=== PATIENT | female | born 1970 | race Caucasian/White ===

== ENCOUNTER 2019-10-19 04:52 | Inpatient (IN) ==
[2019-10-13 12:26] LABS: Appearance,Urine CLEAR; Bacteria,Urine 0 /hpf (0); Bilirubin,Urine NEG (NEG); Color,Urine YELLOW; Culture Indicated,Urine NO; Glucose,Urine (UA) NEGATIVE (NEG); Ketones,Urine NEG (NEG); Leukocyte Esterase,Urine NEG /uL (NEG); Mucus,Urine MANY /hpf (0); Nitrate,Urine NEG (NEG); Protein,Urine 30 mg/dL (NEG); Specific Gravity,Urine 1.026 (1.000-1.035); Urine Blood NEG mg/dL (<0.03); Urine RBC < 1 /hpf (0-1); Urine Squamous Epithelial Cell 1 /hpf (0-4); Urine Transitional Epi Cells < 1 /hpf (0-2); Urine WBC < 1 /hpf (0-4); Urobilinogen,Urine NEG (NEG)
[2019-10-13 12:42] LABS: Basophils # (Auto) 0.03 K/mcL (0.00-0.30); Basophils % (Auto) 0.4 % (0.0-2.0); Eosinophils # (Auto) 0.15 K/mcL (0.00-0.70); Eosinophils % (Auto) 2.1 % (0.0-7.0); Granulocytes % (Auto) 79.7 % (38.0-78.0); Hematocrit 35.4 % (34.1-44.9); Hemoglobin 11.6 g/dL (11.2-15.7); Lymphocytes # (Auto) 0.86 K/mcL (1.50-4.80); Lymphocytes % (Auto) 11.9 % (15.5-49.0); Mean Cell Volume 88.9 fL (80.0-100.0); Mean Corpuscular HGB Conc 32.8 g/dL (31.0-36.0); Mean Platelet Volume 9.5 fL (7.4-10.4); Monocytes # (Auto) 0.43 K/mcL (0.10-0.90); Monocytes % (Auto) 5.9 % (1.0-12.0); Platelet Count 258 K/mcL (140-440); RBC 3.98 M/mcL (3.59-5.38); Red Cell Distribution Width 13.3 % (11.5-14.5); WBC 7.2 K/mcL (4.50-11.00)
[2019-10-13 13:12] LABS: ALT/SGPT 17 U/l (0-40); AST/SGOT 16 U/l (0-37); Albumin 4.1 gm/dL (3.2-5.2); Albumin/Globulin Ratio 1.4 (1.0-2.3); Alkaline Phosphatase 143 U/L (39-117); Bilirubin,Total 0.5 mg/dL (0.0-1.0); Blood Urea Nitrogen 14 mg/dl (6-20); Calcium 9.1 mg/dl (8.6-10.4); Carbon Dioxide 28 mmol/L (22-30); Chloride 100 mmol/L (96-108); Glomerular Filtration Rate 86; Glucose 92 mg/dL (70-105)
[2019-10-13 13:28] LABS: Estimated Average Glucose(eAG) 123 mg/dL; Hemoglobin A1C 5.9 % HGB (4.0-6.0)
[2019-10-13 13:34] LABS: Prothrombin Time 13.2 sec (11.9-14.5)
[2019-10-19] MEDS ORDERED: IPRATROPIUM/ALBUTEROL 3 ML AMPUL.NEB NEB PRN ×2 (05:00→08:57)
[2019-10-19] MEDS ORDERED: SCOPOLAMINE 1 PATCH PATCH TOPICAL PRN (05:00)
[2019-10-19] MEDS ORDERED: oxyCODONE 10 MG TAB.ER.12H PO SCH (06:00)
[2019-10-19] MEDS ORDERED: ceFAZolin 2 GM in DEXTROSE 5% IN WATER 50 ML IV SCH (06:00)
[2019-10-19] MEDS ORDERED: PREGABALIN 75 MG CAPSULE PO SCH (06:00)
[2019-10-19] MEDS ORDERED: CELECOXIB 200 MG CAPSULE PO SCH (06:00)
[2019-10-19] MEDS ORDERED: DEXAMETHASONE 10 MG/ML VIAL IV ONE (07:38)
[2019-10-19] MEDS ORDERED: PHENYLEPHRINE 10 MG/ML VIAL IV ONE (07:38)
[2019-10-19] MEDS ORDERED: PROPOFOL 200 MG/20 ML VIAL IV ONE (07:38)
[2019-10-19] MEDS ORDERED: TRANEXAMIC ACID 1,000 MG/10 ML VIAL IV ONE ×2 (07:38→09:08)
[2019-10-19] MEDS ORDERED: MIDAZOLAM 2 MG/2 ML VIAL IV ONE (07:38)
[2019-10-19] MEDS ORDERED: ONDANSETRON 4 MG/2 ML VIAL IV ONE (07:38)
[2019-10-19] MEDS ORDERED: KETAMINE 100 MG/ML ML IV ONE (07:38)
[2019-10-19] MEDS ORDERED: LIDOCAINE HCL/PF 100 MG/5 ML SYRINGE IV ONE (07:38)
[2019-10-19] MEDS ORDERED: GLYCOPYRROLATE 0.2 MG/ML VIAL IV ONE (07:38)
[2019-10-19] MEDS ORDERED: TRIAMCINOLONE ACETONIDE 40 MG/ML VIAL IM ONE (08:19)
[2019-10-19] MEDS ORDERED: BUPIVACAINE 0.25% 50 ML VIAL IJ ONE (08:19)
[2019-10-19] MEDS ORDERED: ACETAMINOPHEN 1,000 MG/100 ML BOTTLE IV ONE (08:57)
[2019-10-19] MEDS ORDERED: MEPERIDINE 25 MG/ML SYRINGE IV PRN (08:57)
[2019-10-19] MEDS ORDERED: METHOCARBAMOL 1,000 MG/10 ML VIAL IV PRN (08:57)
[2019-10-19] MEDS ORDERED: LORazepam 2 MG/ML VIAL IV PRN (08:57)
[2019-10-19] MEDS ORDERED: LACTATED RINGERS 1,000 ML IV SCH (09:00)
[2019-10-19] MEDS ORDERED: BENZOCAINE/MENTHOL 1 LOZENGE PO PRN (09:08)
[2019-10-19] MEDS ORDERED: BISACODYL 10 MG SUPP.RECT PR PRN (09:08)
[2019-10-19] MEDS ORDERED: MAGNESIUM HYDROXIDE 30 ML ORAL.SUSP PO PRN (09:08)
[2019-10-19] MEDS ORDERED: POLYETHYLENE GLYCOL 3350 17 GM PACKET PO PRN (09:08)
[2019-10-19] MEDS ORDERED: FLEETS ADULT ENEMA PR PRN (09:08)
[2019-10-19] MEDS ORDERED: HYDROmorphone 2 MG/ML VIAL IV PRN (09:08)
[2019-10-19] MEDS ORDERED: KETOROLAC 30 MG/ML VIAL IV PRN (09:08)
[2019-10-19] MEDS ORDERED: ONDANSETRON 4 MG/2 ML VIAL IV PRN (09:08)
--- NOTE | 2019-10-19 09:08 | Brief Operative Note ---
Date of procedure: 10/19/19 Pre-op diagnosis: Bilateral hip acetabular dysplasia with DJD Post-op diagnosis: same Procedure: 1)Right anterior total hip arthroplasty 2)Left hip intra-articular joint corticosteroid injection Grafts/Implants: Yes (Depuy Actis 1 std, +1 32 delta head, 48 cup, neutral altrx liner) Anesthesia: spinal, GLMA Findings: dysplasia with DJD Complications: none Surgeon: Ronaldo Can Shade Cutter: Tacos Medrano Estimated blood loss (cc): 150 Specimens Removed/Pathology: none sent Condition: stable Disposition: PACU
[2019-10-19] MEDS ORDERED: BACLOFEN 10 MG TABLET PO PRN (09:13)
[2019-10-19] MEDS: fentaNYL 100 MCG/2 ML VIAL IV PRN ×4 (09:43→10:06)
--- NOTE | 2019-10-19 10:04 | Operative Note ---
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 PROCEDURE PERFORMED: 1. Right anterior total hip arthroplasty placing a DePuy Actis size 1 standard offset femoral stem, a +1, 32 mm delta ceramic head ball with a 48 Charlo cup and a neutral AltrX liner. 2. Left hip intraarticular corticosteroid joint injection under fluoroscopic guidance. SURGEON: Ronaldo Can MD CANDY STARCH MOLD PRINTER: Aki Medrano PA-C. This provider's expertise and technical skill were required throughout the case. The PA assisted with preoperative coordination, intraoperative retraction, wound closure, dressing and splint application, as well as postoperative documentation and care coordination. ANESTHESIA: Spinal plus general. DRAINS: None. SPECIMENS: Femoral head which was discarded. BLOOD LOSS: 150 mL COMPLICATIONS: None. POSTOPERATIVE CONDITION: Stable. INDICATIONS FOR SURGERY: This is a 49-year-old female who has had bilateral severe hip pain. Radiographs showed bilateral acetabular dysplasia. MRI showed degenerative joint disease in addition to the dysplasia. FINDINGS AT SURGERY: She did have significant synovitis within the hip joint. Post implantation showed satisfactory component position with equal leg lengths and minimally increased offset. PROCEDURE IN DETAIL: The patient had been seen preoperatively. Informed consent obtained after discussion of risks and benefits of surgery. Risks including, but not limited to, bleeding; infection; injury to nerves, blood vessels, and other surrounding structures; anesthetic risks; incomplete or no resolution of symptoms; leg length discrepancy; dislocation; fracture; DVT and pulmonary embolus risks; and the possibility of needing further revision joint surgery. The patient understood these risks and wished to proceed. Correct operative site was marked and then spinal anesthesia given. The patient was then taken to the operating room and LMA general given. The patient was carefully transferred to the fracture table and then the operative hip was carefully prepped and draped in normal sterile fashion. Timeout was performed verifying patient name, operative site, and plan. Ioban was used to cover all skin surfaces. A standard anterior approach incision was made with a scalpel through skin and subcutaneous tissue. Hemostasis was obtained with Bovie cautery. Careful blunt dissection was taken down on the tensor fascia and then this was undermined circumferentially. IrriSept was irrigated and a ring retractor placed. Tensor fascia was incised in line with muscle fibers and then careful blunt dissection taken medial to the muscle belly. Blunt cobra retractors were placed on the superior and inferior femoral neck and then circumflex vessels were coagulated and cut and vastus fascia split distally. Anterior capsulectomy was performed and then the capsule releases. Corkscrew was placed in the femoral head. Prior to placement of the corkscrew we did take x-rays for joint point. Once a corkscrew was placed we used fluoroscopy to identify our approximate neck cut trajectory and then our femoral neck was cut with oscillating tip saw. Femoral head was removed and the acetabulum exposed. Labrum was excised circumferentially as well as soft tissue from the floor. We then irrigated with IrriSept. We then began sequentially reaming until 1 mm smaller than the final implant. We then opened the acetabular component. IrriSept was irrigated, after a minute pulse lavaged with saline and then the cup was impacted using the [id number]. Due to her dysplasia, we did go ahead and place a screw in the posterior superior quadrant. This was a 25 mm screw that did get excellent cortical purchase. Joint point was used to verify satisfactory cup position. A center hole cover was placed and then the acetabular liner was carefully aligned and impacted and carefully verified to be fully seated. We then released traction. The leg was externally rotated and released capsule around the medial neck. The leg was then extended and adducted. Capsule was released out towards greater trochanter and then the proximal femur was exposed. Box osteotome was used to gain canal entry and an awl was used to identify canal trajectory. Rongeur and rasp were used to lateralize and then we began sequentially broaching up to the final size. We calcar planed down onto the broach and then the neck trial and head ball were placed. The hip was reduced. Fluoro was brought in and x-rays taken, joint point was used to verify satisfactory position. We then re-dislocated and removed the trial implants. Definitive implants were opened. We then irrigated the femoral canal with IrriSept again, after a minute pulse lavaged with saline. The final stem was impacted and seated. We then opened the head ball. The stem was carefully cleaned and dried and the head ball was impacted. We then reduced the hip with satisfactory tension. Final fluoro images were taken and saved. We irrigated the joint with IrriSept, after a minute pulse lavaged with saline again and then closed the tensor fascia with two running #1 Vicryls, one running proximal, one running distal and a ring retractor was removed. Final IrriSept irrigation was done, after a minute final pulse lavage, and then fat was tacked to fascia with Vicryl and then 2-0 Monocryl for subcutaneous and felipe for skin. Xeroform and sterile dressing were applied. Once the drapes were removed, we went to the left side and sterile Betadine prep was used over the anterior hip. Fluoroscopic guidance was used to place a spinal needle into the hip joint and then 4 mL of Marcaine mixed with 2 mL of Kenalog 40 mg per mL were injected. A Band-Aid was placed. The patient was then awakened, extubated, and transferred to recovery in stable condition. [id number]:kalie Job ID: [id number] Doc ID: [id number] Ronaldo Can MD
--- NOTE | 2019-10-19 10:19 | XRay Report ---
CLINICAL INFORMATION: right total hip COMPARISON: None. FINDINGS: Multiple digital images from the OR are submitted showing right total hip prosthesis in anatomic alignment. No osseous abnormality. Soft tissue swelling seen at the expected IMPRESSION: Right hip prostheses anatomically aligned Interpreted and Authenticated by: Pepe Valdivia 10/19/19
--- NOTE | 2019-10-19 10:29 | XRay Report ---
CLINICAL INFORMATION: Post-op Total Hip COMPARISON: None. FINDINGS: Right total hip prosthesis is in near-anatomic alignment. No osseous abnormalities. Soft tissue swelling over the surgical site seen as expected. IMPRESSION: Negative Interpreted and Authenticated by: Pepe Valdivia 10/19/19
[2019-10-19] MEDS: 0.9 % SODIUM CHLORIDE 1,000 ML IV SCH ×2 (10:43→20:45)
[2019-10-19] MEDS: 0.9 % SODIUM CHLORIDE 10 ML SYRINGE IV SCH ×2 (13:33→23:39)
[2019-10-19] MEDS: ceFAZolin 1 GM VIAL IV SCH ×2 (14:37→23:07)
[2019-10-19 14:59] LABS: Hematocrit 29.9 % (34.1-44.9); Hemoglobin 9.9 g/dL (11.2-15.7)
[2019-10-19] MEDS: oxyCODONE/APAP 5/325MG TABLET PO PRN ×2 (17:51→21:51)
[2019-10-19] MEDS: DOCUSATE SODIUM 100 MG CAPSULE PO SCH (20:45)
[2019-10-19] MEDS ORDERED: CETIRIZINE 10 MG TABLET PO SCH (21:00)
[2019-10-19] MEDS ORDERED: MAGNESIUM OXIDE 400 MG TABLET PO SCH (21:00)
[2019-10-19] MEDS ORDERED: SENNOSIDES 1 TABLET PO SCH (21:00)
[2019-10-19] MEDS ORDERED: ATORVASTATIN 20 MG TABLET PO SCH (21:00)
[2019-10-19] MEDS: ASPIRIN 81 MG TAB.CHEW PO SCH (23:38)
[2019-10-20] MEDS: 0.9 % SODIUM CHLORIDE 10 ML SYRINGE IV SCH (07:19)
[2019-10-20] MEDS ORDERED: LIOTHYRONINE 5 MCG TABLET PO SCH (07:30)
[2019-10-20] MEDS ORDERED: PANTOPRAZOLE 40 MG TABLET PO SCH (07:30)
[2019-10-20] MEDS ORDERED: LEVOTHYROXINE 75 MCG TABLET PO SCH (07:30)
[2019-10-20] MEDS: 0.9 % SODIUM CHLORIDE 1,000 ML IV SCH (07:35)
--- NOTE | 2019-10-20 07:53 | Discharge Summary ---
Providers - Providers Patient information: Note initiated : 10/20/19 at 7:50 am Service Date, if different from initiated Date: [] Patient: Deonna Mancera 49 y/o F admitted on 10/19/19 for Right Total Hip Arthroplasty Anterior and Left Hip. Chief Complaint: [] Discharge date: 10/20/19 Hospitalization Hospital Course: Pt admitted for a R [facility]. Pt spent 1 night on the floor for IV pain meds, IV abx and PT. Pt will f/u in 2 weeks. Will f/u with PCP for post-op tachycardia. Discharge diagnosis: R hip OA Exam - Exam Clean and dry: Yes Weight bearing status: as tolerated Ortho Discharge - G[facility] - Patient Instructions Diet: Regular Diet Activity: activity as tolerated, weight bearing as tolerated Total Hip Protocol: Follow activity instructions as provided by Physical Therapy. Dressing Care: May shower in 2 days - Follow Up Plan Follow Up Appointments: Tacos Medrano PA-C [Physician Pairer Odds] - 10/31/19 9:20 am Disposition: Home, Self-Care Prognosis: Good Rehab Potential: Good Overall status at discharge: patient is progressing back to baseline - Orders For Discharge Prescriptions: oxyCODONE/APAP [Percocet 5-325 mg] 1 - 2 tab PO Q6HP PRN #75 tab PRN Reason: Pain Level 3-6 Prescription Printed Pending Studies Resuscitation Status Full Code Diet Regular Diet Start ThuOct 19 0910 Aspirin (Aspirin) 81 mg PO BID [facility] Last Admin: 10/19/19 23:38 Dose: 81 mg Documented by: CHAS Atorvastatin Calcium (Lipitor) 20 mg PO [facility] Last Admin: 10/19/19 20:44 Dose: 20 mg Documented by: CHAS Cetirizine HCl (Zyrtec) 10 mg PO [facility] Last Admin: 10/19/19 20:44 Dose: 10 mg Documented by: CHAS Docusate Sodium (Colace) 100 mg PO BID [facility] Last Admin: 10/19/19 20:45 Dose: 100 mg Documented by: CHAS Hydromorphone HCl (Dilaudid) 0 mg IV Q2HP PRN PRN Reason: PAIN LEVEL > 6 Last Admin: 10/19/19 11:20 Dose: 0.5 mg Documented by: JUANCARLOS Sodium Chloride (Sodium Chloride 0.9%) 1,000 mls @ 100 mls/hr IV .Q10H [facility] Last Admin: 10/20/19 07:35 Dose: Not Given Documented by: Infusion: 10/20/19 07:35 Dose: 0 mls/hr Documented by: Admin: 10/19/19 20:45 Dose: 100 mls/hr Documented by: Infusion: 10/19/19 20:43 Dose: 100 mls/hr Documented by: Admin: 10/19/19 10:43 Dose: 100 mls/hr Documented by: JUANCARLOS Ketorolac Tromethamine (Toradol) 30 mg IV Q6HP PRN PRN Reason: Pain Stop: 10/21/19 09:11 Last Admin: 10/19/19 10:01 Dose: 30 mg Documented by: ANMOL Levothyroxine Sodium (Synthroid) 75 mcg PO [facility] Last Admin: 10/20/19 07:19 Dose: 75 mcg Documented by: JUANCARLOS Liothyronine Sodium (Cytomel) 15 mcg PO [facility] Last Admin: 10/20/19 07:19 Dose: 15 mcg Documented by: JUANCARLOS Magnesium Oxide (Magnesium Oxide) 400 mg PO [facility] Last Admin: 10/19/19 20:45 Dose: 400 mg Documented by: CHAS Oxycodone/Acetaminophen (Percocet 5-325 Mg) 0 tab PO Q4HP PRN PRN Reason: PAIN LEVEL 3-6 Last Admin: 10/19/19 21:51 Dose: 1 tab Documented by: Admin: 10/19/19 17:51 Dose: 1 tab Documented by: JUANCARLOS Pantoprazole Sodium (Protonix) 40 mg PO [facility] Last Admin: 10/20/19 07:19 Dose: 40 mg Documented by: JUANCARLOS Senna (Senokot) 2 tab PO [facility] Last Admin: 10/19/19 20:44 Dose: 2 tab Documented by: CHAS Sodium Chloride (Saline Flush) 10 ml IV Q8 [facility] Last Admin: 10/20/19 07:19 Dose: Not Given Documented by: Admin: 10/19/19 23:39 Dose: Not Given Documented by: Admin: 10/19/19 13:33 Dose: Not Given Documented by: JUANCARLOS Shift Summary 10/20/19 03:11 Shift Summary by Hood Jara Pt rested during the shift. Pt treated for pain to surgical (right) hip with 1 percocet times 2 during the shift. Pt with tachycardia post op and with activity. Early in the shift HR was 130's, but slowed to 100's with rest. Pt HR 80-96 with rest and increased to 120's with activity. Pt up in alexis and ambulated approx 120' with FWW, gait belt and 1 SBA, gait slow but steady. Pt with 18 ga IV to left wrist with NS infusing at 100 mL per hour, without difficulty. Pt with dressing to right anterior hip that is CDIT with small purple discoloration to upper portion of dressing. Pt cont with cont pulse/ox monitoring r/t HR yesterday. Initialized on 10/20/19 03:11 - END OF NOTE
[2019-10-20] MEDS: DOCUSATE SODIUM 100 MG CAPSULE PO SCH (08:18)
[2019-10-20] MEDS: ASPIRIN 81 MG TAB.CHEW PO SCH (08:18)
[2019-10-20] MEDS: oxyCODONE/APAP 5/325MG TABLET PO PRN (08:18)
[2019-10-20] MEDS ORDERED: VITAMIN D3 1,000 UNIT TABLET PO SCH (09:00)
[2019-10-20] MEDS ORDERED: LYSINE 1000 MG PO SCH (09:00)
[2019-10-20] MEDS ORDERED: DULoxetine 30 MG CAPSULE PO SCH (09:00)
== END 2019-10-20 10:30 | disposition home or self-care (01) | DRG 470 ==
LOC: MEDSUR 04:52
PROVIDERS: ADMIT Orthopaedic Surgery; ATTEND Orthopaedic Surgery